=== PATIENT | female | born 1965 | race Two or more races ===

== ENCOUNTER → 2024-09-07 06:16 | Outpatient (CLI) | payer OTHER ==
[2024-09-07 06:42] LABS: URINE APPEARANCE Clear; URINE BILIRRUBIN Negative (NEGATIVE); URINE COLOR Yellow; URINE GLUCOSE Negative (NEGATIVE); URINE KETONE Trace (NEGATIVE); URINE LEUKOCYTE Small; URINE NITRATE Negative; URINE PROTEIN Negative (NEGATIVE); URINE UROBILINOGEN 0.2 E.U./dl
[2024-09-07 06:43] LABS: URINE BACTERIA 147.4 uL (0.0-1933); URINE EPITHELIAL CELLS 18.8 uL (0.0-38.8); URINE RBC 23.2 uL (0.0-20.8); URINE WBC 30.5 uL (0.0-23.2)
[2024-09-07 06:49] LABS: URINE BLOOD TRACES; URINE CAST 0.61 uL (0.0-1.40)
[2024-09-07 06:56] LABS: HEMATOCRIT 36.6 % (36.0-45.00); HEMOGLOBIN 12.5 g/dL (12.0-15.00); MEAN CELL VOLUME 85.2 fL (80.00-100.00); MEAN CORPUSCULAR HEMOGLOBIN 29.1 pg (27.00-32.0); MEAN CORPUSCULAR HGB CONC 34.1 g/dl (32.0-36.0); PLATELET COUNT 169 K/uL (150-450); RED CELL DISTRIBUTION WIDTH 14.1 % (11.5-14.5)
[2024-09-07 07:48] LABS: ALBUMIN 4.4 gm/dL (3.4-5.0); BILIRUBIN TOTAL 0.69 mg/dL (0.3-1.2); CALCIUM 9.5 mg/dL (8.5-10.1); CHOL HDL RATIO 3.4 (0-5.0); CREATININE SERUM 0.66 mg/dL (0.55-1.02); GFR 91.98; GLOBULINA 3.2 G/DL (2.4-3.5); POTASSIUM 4.71 mEq/L (3.5-5.1); T4 TOTAL 8.85 UG/DL (4.8-13.9); TOTAL PROTEIN 7.6 gm/dL (6.4-8.2); TSH 2.5 uIU/mL (0.358-3.74)
[2024-09-07 12:25] LABS: T3 TOTAL 1.02 ng/ml (0.846-2.02); VITAMIN D3 25 HYDROXY 38.85 ng/ml (30-120)
== END | disposition home or self-care (01) ==
LOC: LAB 06:16
PROVIDERS: ATTEND General Practice
DX: D64.9 Anemia, unspecified (principal); N39.0 Urinary tract infection, site not specified; E11.9 Type 2 diabetes mellitus without complications; E78.5 Hyperlipidemia, unspecified; E03.9 Hypothyroidism, unspecified; E55.9 Vitamin D deficiency, unspecified

== ENCOUNTER 2024-09-09 07:06 | Outpatient (CLI) | payer OTHER | END 2024-09-09 07:09 | disposition home or self-care (01) | LOC: MAMO-SONO 07:06 | PROVIDERS: ATTEND General Practice | DX: N63 Unspecified lump in breast (principal); Z12.31 Encounter for screening mammogram for malignant neoplasm of breast ==

== ENCOUNTER 2024-09-15 12:28 | Outpatient (CLI) | payer OTHER | END 2024-09-15 12:32 | disposition home or self-care (01) | LOC: NUCLEAR 12:28 | PROVIDERS: ATTEND General Practice | DX: M81.0 Age-related osteoporosis without current pathological fracture (principal) ==

== ENCOUNTER → 2024-09-20 09:49 | Outpatient (CLI) | payer OTHER | END | disposition home or self-care (01) | LOC: LAB 09:49 | PROVIDERS: ATTEND General Practice | DX: N92.1 Excessive and frequent menstruation with irregular cycle (principal); E03.9 Hypothyroidism, unspecified ==

== ENCOUNTER 2024-11-23 07:09 | Outpatient (CLI) | payer OTHER | END 2024-11-23 07:13 | disposition home or self-care (01) | LOC: SONOGRAMA 07:09 | PROVIDERS: ATTEND Internal Medicine Gastroenterology | DX: R63.4 Abnormal weight loss (principal); R10.11 Right upper quadrant pain ==

== ENCOUNTER → 2024-12-16 06:10 | Outpatient (CLI) | payer OTHER ==
[2024-12-16 08:26] LABS: ALBUMIN 4.2 gm/dL (3.4-5.0); BILIRUBIN TOTAL 0.87 mg/dL (0.3-1.2); CALCIUM 9.2 mg/dL (8.5-10.1); CREATININE SERUM 0.59 mg/dL (0.55-1.02); GFR 104.69; POTASSIUM 4.41 mEq/L (3.5-5.1); TOTAL PROTEIN 7.2 gm/dL (6.4-8.2)
== END | disposition home or self-care (01) ==
LOC: LAB 06:10
PROVIDERS: ATTEND Internal Medicine Endocrinology, Diabetes & Metabolism
DX: E21.3 Hyperparathyroidism, unspecified (principal); E55.9 Vitamin D deficiency, unspecified

== ENCOUNTER → 2025-01-11 06:06 | Outpatient (CLI) | payer OTHER ==
[2025-01-11 06:49] LABS: HEMATOCRIT 38.1 % (36.0-45.00); HEMOGLOBIN 12.3 g/dL (12.0-15.00); MEAN CELL VOLUME 85.4 fL (80.00-100.00); MEAN CORPUSCULAR HEMOGLOBIN 27.6 pg (27.00-32.0); MEAN CORPUSCULAR HGB CONC 32.3 g/dl (32.0-36.0); PLATELET COUNT 175 K/uL (150-450); RED BLOOD COUNT 4.46 M/uL (4.00-6.00); RED CELL DISTRIBUTION WIDTH 14.3 % (11.5-14.5)
[2025-01-11 06:52] LABS: PH,URINE 5.5 (5.0-8.0); URINE APPEARANCE Clear; URINE BILIRRUBIN Small (NEGATIVE); URINE BLOOD Negative; URINE COLOR Dark Yellow; URINE GLUCOSE Negative (NEGATIVE); URINE KETONE Trace (NEGATIVE); URINE LEUKOCYTE Small; URINE NITRATE Positive; URINE PROTEIN Trace (NEGATIVE)
[2025-01-11 06:54] LABS: URINE BACTERIA 35.4 uL (0.0-1933); URINE EPITHELIAL CELLS 38.3 uL (0.0-38.8); URINE RBC 10.3 uL (0.0-20.8); URINE WBC 16.4 uL (0.0-23.2)
[2025-01-11 07:12] LABS: URINE CAST 0.29 uL (0.0-1.40)
[2025-01-11 07:13] LABS: URINE MUCUS HEAVY
[2025-01-11 07:21] LABS: ALBUMIN 4.2 gm/dL (3.4-5.0); BILIRUBIN TOTAL 0.8 mg/dL (0.3-1.2); CALCIUM 8.8 mg/dL (8.5-10.1); CHOL HDL RATIO 2.5 (0-5.0); CREATININE SERUM 0.56 mg/dL (0.55-1.02); GFR 111.19; GLOBULINA 2.9 G/DL (2.4-3.5); POTASSIUM 3.97 mEq/L (3.5-5.1); T4 TOTAL 8.46 UG/DL (4.8-13.9); TOTAL PROTEIN 7.1 gm/dL (6.4-8.2); TSH 3.5 uIU/mL (0.358-3.74)
== END | disposition home or self-care (01) ==
LOC: LAB 06:06
PROVIDERS: ATTEND Internal Medicine
DX: E78.9 Disorder of lipoprotein metabolism, unspecified (principal); I10 Essential (primary) hypertension; Z01.810 Encounter for preprocedural cardiovascular examination; E21.3 Hyperparathyroidism, unspecified; E55.9 Vitamin D deficiency, unspecified

== ENCOUNTER → 2025-04-13 06:07 | Outpatient (CLI) | payer OTHER ==
[2025-04-13 06:54] LABS: BASO % 0.5 % (0.1-1.2); EOS # 0.09 (0.04-0.54); EOS % 1.5 % (0.7-7.0); HEMATOCRIT 37.8 % (34.1-44.9); HEMOGLOBIN 12.3 g/dL (11.2-15.7); LYMPH # 2.32 (1.18-3.74); LYMPH % 39.7 % (19.3-53.1); MEAN CORPUSCULAR HEMOGLOBIN 28.1 pg (25.6-32.2); MONO % 8.6 % (4.7-12.5); NEUT # 2.89 (1.56-6.13); NEUT % 49.5 % (34.0-71.1); PLATELET COUNT 228 K/uL (163-369); RED BLOOD COUNT 4.37 M/uL (3.93-5.22); RED CELL DISTRIBUTION WIDTH 13.6 % (11.6-14.4)
[2025-04-13 07:12] LABS: URINE BACTERIA 9.7 uL (0.0-1933); URINE RBC 14.5 uL (0.0-20.8); URINE WBC 16.1 uL (0.0-23.2)
[2025-04-13 07:26] LABS: URINE BILIRRUBIN SMALL (NEGATIVE); URINE BLOOD NEGATIVE; URINE GLUCOSE NEGATIVE (NEGATIVE); URINE KETONE NEGATIVE (NEGATIVE); URINE LEUKOCYTE NEGATIVE; URINE NITRATE NEGATIVE; URINE PROTEIN NEGATIVE (NEGATIVE); URINE UROBILINOGEN 0.2 E.U./dl
[2025-04-13 07:31] LABS: URINE APPEARANCE CLEAR; URINE CAST 0.14 uL (0.0-1.40); URINE COLOR YELLOW
[2025-04-13 13:12] LABS: ALBUMIN 4.3 gm/dL (3.4-5.0); BILIRUBIN TOTAL 0.82 mg/dL (0.3-1.2); CALCIUM 9.1 mg/dL (8.5-10.1); CREATININE SERUM 0.61 mg/dL (0.55-1.02); GFR 100.39; GLOBULINA 3.3 G/DL (2.4-3.5); POTASSIUM 4.11 mEq/L (3.5-5.1); T4 TOTAL 8.54 UG/DL (4.8-13.9); TOTAL PROTEIN 7.6 gm/dL (6.4-8.2); TSH 3.32 uIU/mL (0.358-3.74)
== END | disposition home or self-care (01) ==
LOC: LAB 06:07
PROVIDERS: ATTEND Internal Medicine
DX: I10 Essential (primary) hypertension (principal); Z01.810 Encounter for preprocedural cardiovascular examination; E78.9 Disorder of lipoprotein metabolism, unspecified; E21.3 Hyperparathyroidism, unspecified; E55.9 Vitamin D deficiency, unspecified

== ENCOUNTER 2025-08-01 06:11 | Outpatient (CLI) | payer OTHER ==
[2025-08-01 07:22] LABS: BASO % 0.5 % (0.1-1.2); EOS # 0.06 (0.04-0.54); EOS % 1.1 % (0.7-7.0); LYMPH # 2.09 (1.18-3.74); LYMPH % 37.1 % (19.3-53.1); MEAN PLATELET VOLUME 11.30 fl (9.4-12.4); MONO # 0.55 (0.24-0.82); MONO % 9.8 % (4.7-12.5); NEUT # 2.88 (1.56-6.13); NEUT % 51.1 % (34.0-71.1); RED CELL DISTRIBUTION WIDTH 13.7 % (11.6-14.4)
[2025-08-01 07:24] LABS: URINE APPEARANCE Clear; URINE BILIRRUBIN Negative (NEGATIVE); URINE BLOOD Negative; URINE COLOR Yellow; URINE GLUCOSE Negative (NEGATIVE); URINE KETONE Trace (NEGATIVE); URINE LEUKOCYTE Negative; URINE NITRATE Negative; URINE PROTEIN Negative (NEGATIVE); URINE UROBILINOGEN 0.2 E.U./dl
[2025-08-01 07:29] LABS: URINE EPITHELIAL CELLS 4.7 uL (0.0-38.8); URINE RBC 4.6 uL (0.0-20.8); URINE WBC 7.3 uL (0.0-23.2)
[2025-08-01 07:35] LABS: URINE BACTERIA 3.5 uL (0.0-1933); URINE CAST 0.00 uL (0.0-1.40)
[2025-08-01 08:01] LABS: ALT/SGPT 15.0 U/L (12-78); AST/SGOT 7.0 U/L (15-37); BILIRUBIN TOTAL 0.46 mg/dL (0.3-1.2); BUN CREA RATIO 33.0 (7.0-25.0); CREATININE SERUM 0.64 mg/dL (0.55-1.02); GFR 94.98; GLOBULINA 2.8 G/DL (2.4-3.5); GLUCOSE FASTING 87.0 mg/dL (65-100); OSMOLALITY SERUM 291.0 MOSM/KG (275-295); T3 UPTAKE 37.0 % (30-39); T4 TOTAL 6.67 UG/DL (4.8-13.9); TSH 2.4 uIU/mL (0.358-3.74)
== END 2025-08-01 06:15 | disposition home or self-care (01) ==
LOC: LAB 06:11
PROVIDERS: ATTEND Internal Medicine
DX: E78.9 Disorder of lipoprotein metabolism, unspecified (principal); E21.3 Hyperparathyroidism, unspecified; E55.9 Vitamin D deficiency, unspecified; M81.0 Age-related osteoporosis without current pathological fracture; I10 Essential (primary) hypertension

== ENCOUNTER 2025-09-01 06:16 | Outpatient (CLI) | payer OTHER ==
[2025-09-01 08:00] LABS: ALT/SGPT 20.0 U/L (12-78); AST/SGOT 13.0 U/L (15-37); BILIRUBIN TOTAL 0.71 mg/dL (0.3-1.2); BUN CREA RATIO 16.0 (7.0-25.0); CREATININE SERUM 0.58 mg/dL (0.55-1.02); GFR 106.4; GLOBULINA 3.3 G/DL (2.4-3.5); GLUCOSE FASTING 80.0 mg/dL (65-100); OSMOLALITY SERUM 283.0 MOSM/KG (275-295)
== END 2025-09-01 06:17 | disposition home or self-care (01) ==
LOC: LAB 06:16
PROVIDERS: ATTEND Internal Medicine Endocrinology, Diabetes & Metabolism
DX: E55.9 Vitamin D deficiency, unspecified (principal); E21.1 Secondary hyperparathyroidism, not elsewhere classified

== ENCOUNTER 2025-10-03 10:00 | Outpatient (CLI) | payer OTHER | END 2025-10-03 10:03 | disposition home or self-care (01) | LOC: MAMO-SONO 10:00 | PROVIDERS: ATTEND Obstetrics & Gynecology | DX: N60.11 Diffuse cystic mastopathy of right breast (principal); N60.12 Diffuse cystic mastopathy of left breast; Z12.31 Encounter for screening mammogram for malignant neoplasm of breast ==